=== PATIENT | female | born 2000 | race Caucasian/White ===

== ENCOUNTER → 2018-08-19 12:06 | Outpatient (CLI) | payer OTHER, SELFPAY ==
[2018-08-19 12:59] LABS: Basophils % 0.3 % (0.1-2.0); Eosinophils # 0.1 K/mm3 (0.0-0.4); Eosinophils % 0.8 % (0.1-12.0); Hematocrit 37.9 % (37.0-47.0); Hemoglobin 12.6 g/dL (12.2-16.2); Lymphocytes # 1.6 K/mm3 (0.7-4.5); Lymphocytes % 18.7 % (10-50); Mean Corpuscular HGB Conc 33.1 g/dL (31.8-35.4); Mean Corpuscular Hemoglobin 29.2 pg (27.0-31.2); Mean Corpuscular Volume 88.2 fl (81-99); Monocytes # 0.4 K/mm3 (0.1-1.0); Monocytes % 5.1 % (1.7-9.3); Neutrophils # 6.4 K/mm3 (1.8-7.8); Neutrophils % 75.1 % (37.0-80.0); Platelet Count 240 K/mm3 (142-424); Red Cell Distribution Width 13.1 % (11.5-17.5); White Blood Count 8.5 K/mm3 (4.5-13.0)
[2018-08-20 09:16] LABS: HIV Screen 4th Generation wRfx Non Reactive (Non Reactive)
[2018-08-22 08:20] LABS: Hepatitis B Surface Antigen Negative (Negative); Hepatitis C Antibody 0.2 s/co ratio (0.0-0.9); Rapid Plasma Reagin Ab Titer Non Reactive (NonRea<1:1); Rubella Antibodies, IgG 1.26 index (Immune >0.99)
[2018-08-24 08:41] LABS: Neisseria gonorrhoeae, NAA Negative (Negative)
== END ==
PROVIDERS: Visit Provider Nurse Practitioner Obstetrics & Gynecology
DX: O24.919 Unspecified diabetes mellitus in pregnancy, unspecified trimester (principal); Z34.90 Encounter for supervision of normal pregnancy, unspecified, unspecified trimester; Z79.4 Long term (current) use of insulin
CPT/HCPCS: 36415; 85025; 86592; 86703; 86762; 86850; 87340; 87380; 87491; 87591; G0432

== ENCOUNTER → 2018-08-30 13:08 | Outpatient (CLI) | payer OTHER, SELFPAY ==
--- NOTE | 2018-08-30 13:12 | US_ITS ---
US OB transvaginal: INDICATION: Occasional vaginal spotting ITS.REASON: US OB Dates ORDERING PHYSICIAN: Wyatt Quick MD PATIENT AGE: 17 years TECHNIQUE: ultrasound transabdominal scanning. COMPARISON: No previous relevant studies. FINDINGS: There is an intrauterine gestational sac. There is a viable gestation with the crown-rump length measuring 1.13 cm equaling 7 weeks and 2 days. The sac is visualized measuring 2.43 cm. The heart rate is 1 39 bpm. Both ovaries are imaged and appear normal. There is no cul-de-sac fluid. Impression: Viable early intrauterine gestation approximate age 7 weeks and 3 days with estimated due date 04/15/2019
== END ==
PROVIDERS: Visit Provider Nurse Practitioner Obstetrics & Gynecology
DX: O26.841 Uterine size-date discrepancy, first trimester (principal)
CPT/HCPCS: 76817

== ENCOUNTER → 2018-11-25 13:01 | Outpatient (CLI) | payer OTHER, SELFPAY ==
--- NOTE | 2018-11-25 13:06 | US_ITS ---
US OB /maternal detail: INDICATION: ITS.REASON: US OB Complete ORDERING PHYSICIAN: Wyatt Quick MD PATIENT AGE: 17 years TECHNIQUE: ultrasound transabdominal scanning. COMPARISON: No previous relevant studies. FINDINGS: Single viable intrauterine gestation. Breech position. Placenta: Posterior placenta grade 1. There is normal amount fluid. The cervix appears satisfactory. Closed and measuring 4.19 cm in length. Complete survey performed and was unremarkable on the submitted images as in PACS. No discrete anomalies identified on survey imaging by technologist. Active fetus. Three-vessel cord with satisfactory umbilical cord insertion. 4- chamber heart noted. Survey of brain & ventricles unremarkable. Face and neck survey unremarkable. Diaphragm and chest views unremarkable. Abdomen: Both kidneys noted and unremarkable. Stomach noted and satisfactory. Spine: Survey of the spine satisfactory with no anomalies identified nor imaged. Both arms and legs noted. Amniotic Fluid: Adequate. Maternal adnexa: No significant findings. Measurements: Average ultrasound age 19 weeks and 5 days.. Gestational Age 19 weeks and 6 days.. Estimated due date by ultrasound age 1104/16/2019.. Estimated weight 309 grams. BPD = 19 weeks 6 days OFD = 19 weeks 6 days HC = 19 weeks 0 days AC = 19 weeks 6 days FL = 19 weeks 6 days Growth Percentile= 37% Heart Rate = 142 bpm Cerebellum = 1.93 cm equals 19 weeks and 6 days. Humerus = 3.15 cm equals 19 weeks and 6 days. HC/AC is 1.11. CI is 80%. FL/BPD is 69%. FL/AC is 22%. IMPRESSION: Intrauterine fetus as described with reach presentation and heart rate of 1 42 bpm. Estimated gestational age by ultrasound is 19 weeks and 5 days.
== END ==
PROVIDERS: Visit Provider Nurse Practitioner Obstetrics & Gynecology
DX: Z36.0 Encounter for antenatal screening for chromosomal anomalies (principal)
CPT/HCPCS: 76811

== ENCOUNTER → 2019-02-07 12:28 | Outpatient (CLI) | payer OTHER, SELFPAY ==
[2019-02-07 13:04] LABS: Glucose,Fasting 82 mg/dL (60-105)
[2019-02-07 14:33] LABS: Glucose 1 Hour 143 mg/dL (74-106)
== END ==
PROVIDERS: Visit Provider Nurse Practitioner Obstetrics & Gynecology
DX: Z34.90 Encounter for supervision of normal pregnancy, unspecified, unspecified trimester (principal)
CPT/HCPCS: 36415; 82951

== ENCOUNTER → 2019-02-18 10:05 | Outpatient (CLI) | payer OTHER, SELFPAY ==
[2019-02-18 10:45] LABS: Glucose,Fasting 84 mg/dL (60-105)
[2019-02-18 12:07] LABS: Glucose 1 Hour 152 mg/dL (74-106)
[2019-02-18 13:34] LABS: Glucose 2 Hour 99 mg/dL (74-106)
[2019-02-18 14:35] LABS: Glucose 3 Hour 101 mg/dL (74-106)
== END ==
PROVIDERS: Visit Provider Nurse Practitioner Obstetrics & Gynecology
DX: Z34.90 Encounter for supervision of normal pregnancy, unspecified, unspecified trimester (principal)
CPT/HCPCS: 36415; 82951

== ENCOUNTER → 2019-03-20 17:17 | Outpatient (CLI) | payer OTHER, SELFPAY ==
[2019-03-20 17:19] LABS: Microscopic, Urine URINE MICROSCOPIC (MICROSCOPIC)
[2019-03-20 17:27] LABS: Appearance,Urine CLEAR (Clear); Bilirubin,Urine Negative (Negative); Blood, Urine TRACE-L (Negative); Color,Urine YELLOW (Yellow); Glucose,Urine (UA) Negative (Negative); Ketones,Urine Negative (Negative); Leukocyte Esterase,Urine 3+ (Negative); Nitrate,Urine Negative (Negative); PH,Urine 6.5 (5.0-8.5); Protein,Urine Negative (Negative); Specific Gravity, Urine 1.015 (1.005-1.030); Urobilinogen,Urine 0.2 EU/dl (0.2)
[2019-03-20 18:00] LABS: Bacteria,Urine 1+ /lpf; WBC,Urine 20-50 #/hpf (0-3)
== END ==
PROVIDERS: Visit Provider Nurse Practitioner Obstetrics & Gynecology
DX: Z34.90 Encounter for supervision of normal pregnancy, unspecified, unspecified trimester (principal); Z3A.36 36 weeks gestation of pregnancy
CPT/HCPCS: 81001; 86403; 87086

== ENCOUNTER 2019-04-11 15:29 | Inpatient (IN) ==
[2019-04-11 16:08] LABS: Microscopic, Urine URINE MICROSCOPIC (MICROSCOPIC)
[2019-04-11 16:09] LABS: Appearance,Urine CLEAR (Clear); Bilirubin,Urine Negative (Negative); Blood, Urine 3+ (Negative); Color,Urine YELLOW (Yellow); Glucose,Urine (UA) Negative (Negative); Ketones,Urine Negative (Negative); Leukocyte Esterase,Urine 3+ (Negative); PH,Urine 7.5 (5.0-8.5); Protein,Urine Negative (Negative); Specific Gravity, Urine 1.015 (1.005-1.030); Urobilinogen,Urine 0.2 EU/dl (0.2)
[2019-04-11 16:21] LABS: Amphetamine/Metha Screen,Urine Negative ng/mL (<1000); Barbiturates Screen,Urine Negative ng/mL (<200); Benzodiazepines Screen,Urine Negative ng/mL (<200); Cannabinoid Screen,Urine Negative ng/mL (<50); Cocaine Screen,Urine Negative ng/mL (<300); Methadone Screen,Urine Negative ng/mL (<300); Opiate Screen,Urine Negative ng/mL (<300); Phencyclidine Screen,Urine Negative ng/mL (<25)
[2019-04-11 16:30] LABS: Bacteria,Urine 1+ /lpf; WBC,Urine 20-50 #/hpf (0-3)
--- NOTE | 2019-04-11 16:31 | History & Physical Report ---
OB - H&P: HPI Antepartum - History of Present Illness Chief complaint: Contractions and vaginal bleeding History of present illness: She is a 18-year-old 1 para 0 at 39+ weeks gestational age. She was seen today in the office and she was found to be 4 cm dilated. Since that time she is been having irregular contractions and some spotting. Her cervix has not really changed - History of Present Criteria for establishing EDC:: LMP confirmed by 1st trimester US care: good care Ultrasounds: normal 1st trimester US, normal mid trimester US Obstetrical complications: none Medical complications: none [facility] History I have reviewed the patient's past medical history: Yes Medical History: Denies:: Diabetes Mellitus Type 1, Diabetes Mellitus Type 2 *Have you ever received a pneumonia vaccine?: No *Have you received a flu vaccine this season?: No Other Surgeries: Yes: No Previous Surgery Amputation: No Fractures: No - *Social History Smoking Status: Former smoker Tobacco Type: cigarettes Alcohol Intake: never Substance Use Type: denies use *Occupational Status:: unemployed *Travel in the last 8 weeks: None Family Hx:: Diabetes, Hypertension, Stroke Review of Systems - Review of Systems Review of systems:: pertinent systems reviewed and negative unless documented below Meds Home Medications Medication Instructions Recorded Confirmed Type Vit Calc,Iron,Folic [Kpn] 1 tab PO DAILY 10/19/18 04/11/19 History ferrous sulfate 325 mg (65 mg 325 mg PO DAILY #30 tab 11/15/18 04/11/19 Rx iron) tablet terconazole 0.8 % vaginal cream 1 appful VAGINAL QHS 3 Days #20 g 12/19/18 04/11/19 Rx nystatin 100,000 unit/mL oral 1 ml BUCCAL QID #60 ml 03/27/19 04/11/19 Rx suspension Allergies Allergy/AdvReac Type Severity Reaction Status Date / Time Penicillins [PENICILLINS] Allergy Mild Verified 04/11/19 11:08 Sulfa (Sulfonamide Allergy Mild Verified 04/11/19 11:08 Antibiotics) [SULFA (SULFONAMIDE ANTIBIOTICS)] OB - H&P: Exam - Constitutional no acute distress - Routine HEENT Exam Head: Present: normocephalic Eye: Present: EOMI, PERRL ENT: Present: mucous membranes moist - Routine Neck Exam Present: supple, full ROM - Routine Respiratory Exam Absent: accessory muscle use (good air entry bilaterally), respiratory distress, wheezes, crackles - Routine Cardiovascular Exam Present: RRR. Absent: murmur - Routine Abdominal Exam Present: soft, normoactive bowel sounds. Absent: tenderness, distended, guarding - Routine Rectal Exam Patient deferred: visual exam, digital exam - Routine Exam Patient deferred: external exam, groin exam, perineal exam - Routine Extremities Exam Present: full ROM. Absent: cyanosis, edema - Routine Skin Exam Present: intact. Absent: cyanosis - Routine Neurological Exam Present: alert, oriented X3 - Routine Psychiatric Exam Present: normal affect OB - Results - Labs Labs: Urine 04/11/19 Range/Units 15:47 Urine Color Yellow (Yellow) Urine Appearance Clear (Clear) Urine pH 7.5 (5.0-8.5) Ur Specific [place] 1.015 (1.005-1.030) Urine Protein Negative (Negative) Urine Glucose (UA) Negative (Negative) OB - A/P Antepartum (1) Normal delivery Current visit: Yes Status: Acute - Additional Plan Plan: expectant management Additional Information:: She is having regular contractions and she is 39 weeks and 5 days. We will plan to augment her labor. Her cervix is 4 to 5 cm 75% with irregular contractions. The nonstress test is reactive.
[2019-04-11 17:00] LABS: Basophils % 0.1 % (0.1-2.0); Eosinophils # 0.2 K/mm3 (0.0-0.4); Eosinophils % 1.2 % (0.1-12.0); Lymphocytes % 16.2 % (10-50); Mean Corpuscular HGB Conc 33.4 g/dL (31.8-35.4); Mean Corpuscular Volume 92.5 fl (81-99); Mean Platelet Volume 9.1 fl (7.4-10.4); Monocytes # 0.6 K/mm3 (0.1-1.0); Monocytes % 4.5 % (1.7-9.3); Neutrophils # 9.7 K/mm3 (1.8-7.8); Platelet Count 223 K/mm3 (142-424); Red Cell Distribution Width 13.5 % (11.5-17.5); White Blood Count 12.5 K/mm3 (4.5-13.0)
--- NOTE | 2019-04-12 09:29 | Progress Note ---
Labor Note - Subjective: Date: 04/12/19 Time: 09:28 regular contraction - Objective: NST:: Reactive Contractions:: every 2-3 minutes Cervical Dilation:: 4-5 Effacement:: 90% Station: -1 Membranes: artificially ruptured Comment:: I ruptured her membranes and there was clear fluid - Fetus: Monitoring?: Yes monitoring type:: External - Assessment: Labor progressing?: Yes Cephalopelvic disproportion?: No Patient Problems: All Active Problems Trichomonas infection (Acute) Normal delivery (Acute) (Acute) Conjunctivitis (Acute) - Plan: Anesthesia for epidural?: No Continue to labor down?: Yes Plan for ?: No Continue to monitor?: Yes Start pushing?: No
--- NOTE | 2019-04-12 10:42 | Progress Note ---
[facility] Anesthesia Checklist - Structural Data Admitted From: Inpatient Planned Operative Procedure/s: labor epidural Consent for Planned Operative Procedure(s) Verified: Yes - Airway Assessment C-Spine Mobility Assessed: Yes TMJ Mobility Assessed: Yes Dentition: Good Dentition - Neurological Assessment Level of Consciousness: Awake, Alert, Appropriate - Anesthesia Plan Anesthesia Risk discussed: Yes Anesthesia Plan: Verified ASA Class: II Anesthesia Type: Epidural [facility] History I have reviewed the patient's past medical history: Yes Medical History: Denies:: Diabetes Mellitus Type 1, Diabetes Mellitus Type 2 *Have you ever received a pneumonia vaccine?: No *Have you received a flu vaccine this season?: No Anesthesia experience/problems:: none Other Surgeries: Yes: No Previous Surgery. No: Amputation: No Fractures: No - *Social History Smoking Status: Former smoker Tobacco Type: cigarettes Alcohol Intake: never Substance Use Type: denies use *Occupational Status:: unemployed *Travel in the last 8 weeks: None Family Hx:: Diabetes, Hypertension, Stroke Para: 0
--- NOTE | 2019-04-12 12:30 | Progress Note ---
Labor Note - Subjective: Date: 04/12/19 Time: 12:28 regular contraction - Objective: NST:: Reactive Contractions:: every 2-3 minutes Cervical Dilation:: 6 Effacement:: 100% Station: 0 Membranes: artificially ruptured - Fetus: Monitoring?: Yes monitoring type:: Internal - Assessment: Labor progressing?: Yes Cephalopelvic disproportion?: No Patient Problems: All Active Problems Trichomonas infection (Acute) Normal delivery (Acute) (Acute) Conjunctivitis (Acute) - Plan: Anesthesia for epidural?: Yes Continue to labor down?: Yes Plan for ?: No Continue to monitor?: Yes Start pushing?: No Comment:: She has been having some early decelerations. We have decided to start an amnioinfusion. She is now 6 cm and station 0. The cervix is thinned right out. We will see how she does over the next hour with respect to her heart rate strip. I suspect she may have a nuchal cord. She is on oxygen.
--- NOTE | 2019-04-12 13:36 | Progress Note ---
Labor Note - Subjective: Date: 04/12/19 Time: 13:34 regular contraction - Objective: NST:: Reactive Contractions:: every 2-3 minutes Cervical Dilation:: 9-10 Effacement:: 100% Station: +1 Membranes: artificially ruptured - Fetus: Monitoring?: Yes monitoring type:: Internal - Assessment: Labor progressing?: Yes Cephalopelvic disproportion?: No Patient Problems: All Active Problems Trichomonas infection (Acute) Normal delivery (Acute) (Acute) Conjunctivitis (Acute) - Plan: Anesthesia for epidural?: Yes Continue to labor down?: Yes Plan for ?: No Continue to monitor?: Yes Start pushing?: Yes Continue pushing?: Yes Comment:: She continues to have early decelerations with each contraction. However there is good recovery after each contraction. She is fully dilated station +1. We will continue to have her push. If we still have issues with recovery of the heart then we will go ahead and deliver her with forceps.
--- NOTE | 2019-04-12 14:00 | Procedure Note ---
- Delivery Note Delivery Date:: 04/12/19 Delivery Time:: 13:45 Anesthesia Type: Epidural Was labor medically induced?: No Induction method: none Gestational age (weeks): 39 delivered prior to 39 weeks?: No Justification for early elective delivery:: Active Labor Gender: Female at 1 minute: 7 at 5 minutes: 9 LAC or MLE?: LAC Delivery Procedure:: She is a 18-year-old 1 para 0 at 39 and 4 weeks gestational age. She came in in the evening of April 11 in early labor. She was having irregular contractions. She was found to be 4 to 5 cm dilated. She was augmented with oxytocin and had her membranes ruptured. Under labor epidural she progressed to full dilation. She was having early decelerations and occasional prolonged decelerations. As a result of that in the station +4 direct OA position I elected to place forceps. Her bladder was empty. I used Murillo forceps with pads and using 1 long gentle pull I was able to easily deliver the head. There were no nuchal cords. On deliver the head the anterior shoulder then delivered followed by the rest the 's body atraumatically. The baby was vigorous and cried spontaneously. As result of this we allowed the cord to continue to pulsate for approximately 1 minute. The cord was then doubly clamped and the infant was handed off to Dr. Sanders who assigned Apgars of 7 at 1 minute and 9 at 5 minutes. We then obtained cord blood as well as cord pH. The patient received IV oxytocin. Using gentle traction on the cord and countertraction the fundus I was able to easily deliver the placenta intact. It had a normal three-vessel cord. She had a small vaginal laceration posteriorly that was repaired with interrupted 3-0 Vicryl Rapide suture in a [id number] fashion. She has a positive blood, she is rubella immune and was group B streptococcus negative. She plans to bottlefeed. Her drier operator is Dr. Huynh. Her estimate of blood loss was approximately 400 cc. Laceration:: vaginal Placental Delivery Description: Spontaneous
--- OUTSIDE RECORDS SUMMARY | 2019-04-12 15:08 | External Medical Summary | Continuity of Care Document ---
:2000 Author Organization [facility] Address [address] [place] [address] Phone Care Team Providers Name Role Phone Wyatt Quick Attending Provider Provider, Referral Primary Care Provider Unavailable Wyatt Quick Primary Care Provider Allergies, Adverse Reactions, Alerts Allergen Type Severity Reaction Last Verified Status Updated Penicillins Allergy Mild Yes Active Sulfa Allergy Mild Yes Active (Sulfonamide Antibiotics) Medications Medication Status Dose Units Route Sig Qty Days Start End Instruct ions Date Date Vit Active 1 TAB Oral Daily September Calc,Iron,Fo 2018 12:31am Problems Active Problems Medical Problem Onset Date Status Trichomonas infection Active Normal delivery Active Conjunctivitis Active Active Procedures Procedure Date Performed Status Urine Culture April 11, 2019 active Group B Streptococcus Screen March 20, 2019 completed (SUPRIYA) Urine Culture March 20, 2019 completed Relevant Diagnostic Tests and/or Laboratory Data Laboratory Results Test Date/Time Result Interpretation Reference Result Perfo rming Range Comment Site Urine Color December Yellow 2018 2:24pm Urine Color January Dark Yellow 2018 1:36pm Urine Color January Yellow 2018 2:16pm Urine Color February Yellow 2018 1:46pm Urine Color March Conchis 2018 10:55am Urine Appearance December Clear 2018 2:24pm Urine Appearance January Clear 2018 1:36pm Urine Appearance January Clear 2018 2:16pm Urine Appearance October Slightly 2018 Cloudy 1:46pm Urine Appearance November Clear 2018 10:55am Urine Glucose December Negative (UA) 2018 2:24pm Urine Glucose January Negative (UA) 2018 1:36pm Urine Glucose January Negative (UA) 2018 2:16pm Urine Glucose February Negative (UA) 2018 1:46pm Urine Glucose March Negative (UA) 2018 10:55am Urine Bilirubin December negative 2018 2:24pm Urine Bilirubin January negative 2018 1:36pm Urine Bilirubin January negative 2018 2:16pm Urine Bilirubin February negative 2018 1:46pm Urine Bilirubin March negative 2018 10:55am Urine Ketones December Negative 2018 mg/dL 2:24pm Urine Ketones January Trace 2018 mg/dL 1:36pm Urine Ketones January Negative 2018 mg/dL 2:16pm Urine Ketones February Negative 2018 mg/dL 1:46pm Urine Ketones March Trace 2018 mg/dL 10:55am Urine Protein December Negative 2018 2:24pm Urine Protein February 27+ 2018 1:36pm Urine Specific Lisa 1.020 [place] 2018 2:16pm Urine Protein March 292018 1:46pm Urine Protein March Negative 2018 10:55am Urine pH December 6.0 2018 2:24pm Urine pH January 6.5 2018 1:36pm Urine Blood Lisa hemolyzed 2018 trace 2:16pm Urine pH February 6.5 2018 1:46pm Urine pH March 7.0 2018 10:55am Urine Blood Crown negative 2018 2:24pm Urine Blood January negative 2018 1:36pm Urine pH Lisa 6.0 2018 2:16pm Urine Blood February negative 2018 1:46pm Urine Blood November negative 2018 10:55am Urine Specific Crown 1.025 [place] 2018 2:24pm Urine Specific Lisa 1.020 [place] 2018 1:36pm Urine Protein January Negative 2018 2:16pm Urine Specific October 1.025 [place] 2018 1:46pm Urine Specific November 1.015 [place] 2018 10:55am Urine Crown 0.2 Urobilinogen 2018 Dipstick 2:24pm Urine Lisa 0.2 Urobilinogen 2018 Dipstick 1:36pm Urine Lisa 0.2 Urobilinogen 2018 Dipstick 2:16pm Urine October 0.2 Urobilinogen 2018 Dipstick 1:46pm Urine November 0.2 Urobilinogen 2018 Dipstick 10:55am Urine Nitrate December Negative 2018 2:24pm Urine Nitrate Lisa Negative 2018 1:36pm Urine Nitrate Lisa Negative 2018 2:16pm Urine Nitrate October Negative 2018 1:46pm Urine Nitrate November Negative 2018 10:55am Urine Leukocyte December Small Esterase 2018 2:24pm Urine Leukocyte January Large Esterase 2018 1:36pm Urine Leukocyte January Large Esterase 2018 2:16pm Urine Leukocyte February Large Esterase 2018 1:46pm Urine Leukocyte March Moderate Esterase 2018 10:55am White Blood Count March 12.5 K/mm3 4.5-13.[address] 36 E 2018 [place] [address] 4:47pm Red Blood Count March 3.90 M/mm3 4.20-5.40 [facility], [address] [place] [address] 36 E 2018 [place] [address] 4:47pm Hemoglobin March 12.0 g/dL 12.2-16.[address] 36 E 2018 En [place] [address]45 4:47pm Hematocrit March 36.0 % 37.0-47.[address] 36 E 2018 [place] [address] 4:47pm Mean Corpuscular November 92.5 fl 81-[address] 36 E Volume 2018 En [place] [address]307 4:47pm Mean Corpuscular November 30.9 pg 27.0-31.[address] 36 E Hemoglobin 2018 [place] [address] 4:47pm Mean Corpuscular November 33.4 g/dL 31.8-35.[address] 36 E Hemoglobin 2018 [place] [address] Concent 4:47pm Red Cell March 13.5 % 11.5-17.5 [facility], [address] [place] [address] 36 E Distribution 2018 [place] [address] Width 4:47pm Platelet Count March 223 K/mm3 142-424 [facility], [address] [place] [address] 36 E 2018 [place] [address] 4:47pm Mean Platelet March 9.1 fl 7.4-10.4 [facility], [address] [place] [address] 36 E Volume 2018 [place] [address] 4:47pm Neutrophils (%) March 78.0 % 37.0-80.0 [facility], [address] [place] [address] 36 E (Auto) 2018 [place] [address]645 4:47pm Lymphocytes (%) March 16.2 % 10-50 [facility], [address] [place] [address] 36 E (Auto) 2018 [place] [address] 4:47pm Monocytes (%) March 4.5 % 1.7-9.3 [facility], [address] [place] [address] 36 E (Auto) 2018 [place] 39574 4:47pm Eosinophils (%) March 1.2 % 0.1-12.0 [facility], [address] [place] [address] 36 E (Auto) 2018 En [place] 17036 4:47pm Basophils (%) March 0.1 % 0.1-2.0 [facility], [address] [place] [address] 36 E (Auto) 2018 [place] [address]21 4:47pm Neutrophils # March 9.7 K/mm3 1.8-7.8 [facility], [address] [place] [address] 36 E (Auto) 2018 [place] [address] 4:47pm Lymphocytes # March 2.0 K/mm3 0.7-4.5 [facility], [address] [place] [address] 36 E (Auto) 2018 [place] [address] 4:47pm Monocytes # March 0.6 K/mm3 0.1-1.0 [facility], [address] [place] [address] 36 E (Auto) 2018 [place] [address] 4:47pm Eosinophils # March 0.2 K/mm3 0.0-0.4 [facility], [address] [place] [address] 36 E (Auto) 2018 [place] [address] 4:47pm Basophils # November 0.0 K/mm3 0-0.2 [facility], [address] [place] [address] 36 E (Auto) 2018 [place] [address] 4:47pm Urine Color October Yellow Yellow [facility], [address] [place] [address] 36 E 2018 [place] [address] 11:28am Urine Color November Yellow Yellow [facility], [address] [place] [address] 36 E 2018 [place] [address] 3:47pm Urine Appearance October Clear Clear [facility], [address] [place] [address] 36 E 2018 [place] [address] 11:28am Urine Appearance November Clear Clear [facility], [address] [place] [address] 36 E 2018 [place] [address]385 3:47pm Urine pH October 6.5 5.0-8.5 [facility], [address] [place] [address] 36 E 2018 [place] [address] 11:28am Urine pH November 7.5 5.0-8.5 [facility], [address] [place] [address] 36 E 2018 [place] [address]43 3:47pm Urine Specific October 1.015 1.005-1.03 [facility], [address] [place] [address] 36 E [place] 2018 0 En [place] [address] 11:28am Urine Specific November 1.015 1.005-1.03 [facility], [address] [place] [address] 36 E [place] 2018 0 En [place] [address] 3:47pm Urine Protein October Negative Negative [facility], [address] [place] [address] 36 E 2018 [place] [address] 11:28am Urine Protein November Negative Negative [facility], [address] [place] [address] 36 E 2018 [place] [address] 3:47pm Urine Glucose October Negative Negative [facility], [address] [place] [address] 36 E (UA) 2018 En [place] 286[address] 11:28am Urine Glucose November Negative Negative [facility], [address] [place] [address] 36 E (UA) 2018 [place] [address]2869 3:47pm Urine Ketones October Negative Negative [facility], [address] [place] [address] 36 E 2018 En [place] [address] 11:28am Urine Ketones November Negative Negative [facility], [address] [place] [address] 36 E 2018 [place] [address] 3:47pm Urine Blood October Trace-l Negative [facility], [address] [place] [address] 36 E 2018 [place] [address] 11:28am Urine Blood November 3+ Negative [facility], [address] [place] [address] 36 E 2018 [place] [address]257 3:47pm Urine Nitrate October Negative Negative [facility], [address] [place] [address] 36 E 2018 [place] [address] 11:28am Urine Nitrate November Negative Negative [facility], [address] [place] [address] 36 E 2018 [place] [address]94 3:47pm Urine Bilirubin October Negative Negative [facility], [address] [place] [address] 36 E 2018 [place] 16366 11:28am Urine Bilirubin November Negative Negative [facility], [address] [place] [address] 36 E 2018 [place] 39687 3:47pm Urine October 0.2 EU/dl [facility], [address] [place] [address] 36 E Urobilinogen 2018 [place] [address] 11:28am Urine November 0.2 EU/dl [facility], [address] [place] [address] 36 E Urobilinogen 2018 [place] 16312 3:47pm Urine Leukocyte February 3+ Negative [facility], [address] [place] [address] 36 E Esterase 2018 [place] 80194 11:28am Urine Leukocyte November 3+ Negative [facility], [address] [place] [address] 36 E Esterase 2018 [place] 05844 3:47pm Urine RBC February 5-10 #/hpf [facility], [address] [place] [address] 36 E 2018 [place] 12774 11:28am Urine RBC March 10-20 #/hpf [facility], [address] [place] [address] 36 E 2018 En [place] [address]284 3:47pm Urine WBC February 20-50 #/hpf [facility], [address] [place] [address] 36 E 2018 [place] [address]70 11:28am Urine WBC March 20-50 #/hpf [facility], [address] [place] [address] 36 E 2018 En [place] 42896 3:47pm Urine Squamous March 04- #/hpf [facility], [address] [place] [address] 36 E Epithelial Cells 2018 Cy luanne [place] [address]697 11:28am Urine Squamous April 09- #/hpf [facility], [address] [place] [address] 36 E Epithelial Cells 2018 Cy luanne [place] 88189 3:47pm Urine Bacteria February 28+ /lpf NONE [facility], [address] [place] [address] 36 E 2018 [place] 70298 11:28am Urine Bacteria March 31+ /lpf NONE [facility], [address] [place] [address] E 2018 [place] [address] 3:47pm Fasting Glucose January 82 mg/dL -105 [facility], [address] [place] [address] E 2018 En [place] 12658 12:29pm Fasting Glucose January 84 mg/dL 60-105 [facility], [address] [place] [address] 36 E 2018 En [place] 37465 10:06am Glucose 1 Hour January 143 mg/dL 74-106 [facility], [address] [place] [address] 36 E 2018 En [place] 74145 12:29pm Glucose 1 Hour January 152 mg/dL 74-106 [facility], [address] [place] [address] 36 E 2018 En [place] 62271 10:06am Glucose 2 Hour January 99 mg/dL 74-106 [facility], [address] [place] [address] 36 E 2018 En [place] 32822 10:06am Glucose 3 Hour January 101 mg/dL 74-106 [facility], [address] [place] [address] 36 E 2018 En [place] 85367 10:06am Urine Fasting Lisa Negative [facility], [address] [place] [address] E Glucose 2018 mg/dL [place] 56974 12:29pm Urine Fasting January Negative [facility], [address] [place] [address] 36 E Glucose 2018 mg/dL [place] 90550 10:06am Urine Glucose 29 January Negative [facility], [address] [place] [address] 36 E Hour 2018 mg/dL [place] 03123 12:29pm Urine Glucose 29 January Negative [facility], [address] [place] [address] 36 E Hour 2018 mg/[place] [address] 10:06am Urine Glucose 2 January Negative [facility], [address] [place] [address] E Hour 2018 mg/[place] [address] 10:06am Urine Glucose 3 January Negative [facility], [address] [place] [address] E Hour 2018 mg/[place] [address] 10:06am Urine Opiates November Negative [facility], [address] [place] [address] E Screen 2018 ng/[place] [address] 3:47pm Urine Barbituates November Negative [facility], [address] [place] [address] E Screen 2018 ng/[place] [address] 3:47pm Urine November Negative [facility], [address] [place] [address] E Phencyclidine 2018 ng/[place] [address] Screen 3:47pm Urine November Negative [facility], [address] [place] [address] E Amphetamines 2018 ng/[place] [address] Screen 3:47pm Urine Methadone November Negative [facility], [address] [place] [address] E Screen 2018 ng/[place] [address] 3:47pm Urine November Negative [facility], [address] [place] [address] E Benzodiazepines 2018 ng/[place] [address] Screen 3:47pm Urine Cocaine November Negative [facility], [address] [place] [address] E Screen 2018 ng/[place] [address] 3:47pm Urine Marijuana March Negative [facility], [address] [place] [address] E (THC) Screen 2018 ng/[place] [address] 3:47pm Cord Arterial March 7.34 7.35-7.45 [facility], [address] [place] [address] E Blood pH 132018 [place] [address] 1:50pm Microbiology Results Procedure Source Result Collection Result Result Performin g Date/Time Date/Time Comment Site Urine Culture Urine,Chaya NO GROWTH March 20February H [facility], [address] [place] [address] E n Catch AFTER 48 2018 11:28am 2018 [place] [address] HOURS 5:20pm Group B Vaginal Negative March 20February [facility], [address] [place] [address] E Streptococcus for Group B 2018 10:56am 2018 [place] [address] Screen (SUPRIYA) Streptococc 9:19am us. Advance Directives Advance Directive Response Recorded Date/Time Does the patient have an No April 11, 2019 11:26am advanced directive on file? Living Will No April 11, 2019 11:26am Does the patient have an No April 03 019 11:48am advanced directive on file? Living Will No April 03, 2019 1 1:48am Does the patient have an No March 27 019 9:40am advanced directive on file? Living Will No March 27, 2019 9 :40am Does the patient have an No January 16 2:32pm advanced directive on file? 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 Reason for Visit Normal delivery Encounters Encounter Location(s) Arrival/Admit Date Discharge/Depart Date Provider(s) Departed [facility] Physician January 16, 2019 January 16, 2019 Da Quick [facility] 1:57pm 2:31pm anna Office [facility] Abdelrahman Visit Registered [facility] Physician February 07, Wyatt kenny , Clinical Group-Laboratory 2018 12:28pm Departed [facility] Physician February 08, February 08, 2019 [facility] 2018 1:27pm 2:10pm anna Office Health Abdelrahman Visit Registered [facility] Physician February 18, Wyatt kenny , Clinical Group-Laboratory 2018 10:05am Departed [facility] Physician February 22, February 22, 2019 [facility] 2018 1:41pm 2:48pm anna Office Health Abdelrahman Visit Departed [facility] Physician March 07, 2019 March 07, 2019 aD Quick Physician/[facility] 1:36pm 2:04pm anna Office Health Abdelrahman Visit Departed [facility] Physician March 20, 2019 March 20, 2019 [place] Physician[facility] 10:46am 11:19am anna Office Health Abdelrahman Visit Registered [facility] Physician March 20, 2019 Wyatt logan , Clinical Group-Lab Drop 5:17pm MD Off to [facility] Departed [facility] Physician March 27, 2019 March 27, 2019 [place] [facility] 8:51am 9:39am anna Office Health Abdelrahman Visit Departed [facility] Physician April 03, 2019 April 03, 2019 [place] Physician[facility] 10:53am 11:36am anna Office Health Abdelrahman Visit Departed [facility] Physician April 11, April 11, 2019 Physician Janay/[facility] 2018 10:41am 11:26am anna Office [facility] Abdelrahman Visit Admitted [facility] Physician April 11, Wyatt Quick Inpatient Group-Obstetric 2018 4:50pm MD Registered [facility] Physician April 12, Wyatt Quick Inpatient Group- 2018 2:56pm Recent Diagnosis Onset Date Normal delivery Assessments Diagnosis Onset Date Resolution Status Normal delivery acute Functional Status Observation Response Date Recorded Functional status ambulatory April 11, 2019 11:26am Oral Care Ability Independent April 11, 2019 11:26am Bathing Ability Independent April 11, 2019 11:26am Functional status ambulatory April 03, 2019 1 1:48am Functional status ambulatory March 27, 2019 9 :40am Functional status ambulatory March 07, 2019 2: 08pm Functional status ambulatory February 22, 2019 2:53pm Functional status ambulatory January 16, 2019 2: 32pm Functional status ambulatory March 20, 2019 1 1:21am Functional status ambulatory February 08, 2019 2:09pm Goals Ambulatory Goals Pt. verbalized understanding of disease process/healthy behavior/pt. to follow plan of care/education provided Immunizations Immunization Event Not Given Dose [employer] Lot Vacc ine Date Reason Number Number Informatio n Statement (VIS) Deta il Human July Papillomavirus , Vaccine, 2009 quadrivalent Rabies, November intramuscular , injection 2002 Tetanus, July Diphtheria, , Pertussis (Tdap) 2009 Varicella Virus July Vaccine 2009 Mental Status Observation Response Date Recorded Able to Read Yes April 11, 2019 4:00pm Able to Write Yes April 11, 2019 4:00pm Medical Equipment No Medical Equipment Information available Insurance Providers Guarantor Sanjuana Dhillon Address [address] [address] Contact Info. Home Phone: Payer Policy Id Coverage Id Subscriber's Subscriber Effective Expi ration Name Id Date Date [employer] [id number] Sanjuana Dhillon [id number] [employer] [facility] [place] Self Pay Self N/A Plan of Treatment She is having some discomfort. She is not really having regular contractions. She is 4 cm. I suspect she will deliver this week. She continues to do well. We will see her back again in a week. She is doing well but she does have what appears to be thrush in her mouth. We will go ahead and start nystatin swish and swallow. She is doing well. The baby is active. We will see her back again in 2 weeks time. She continues to do well. We will see her back in 2 weeks time. She is doing well. The baby is active. We will see her back in 2 weeks. She is doing well. We did group B trip today. We will see her back again in a week. She is doing very well. We will see her back in 2 weeks. She will do a sugar test. Future Tests Future scheduled test information is unavailable Pending Tests Pending diagnostic test information is unavailable Future Visits Future appointment information is unavailable Referrals to Other Providers Reason for Referral Start Provider Provider Contact Provider Address Referral Date Information Admission to [facility] April [address] Future Procedures Future procedure information is unavailable Future Medications Future medication information is unavailable Patient Instructions Diet How to Avoid a Cold or Flu Diet Diet Diet Diet How to Breastfeed Your Baby Diet Social History Assigned Sex Female Vital Signs Vital Reading Result Reference Range Collection Date/ Time Height 162.56 cm January 16 9 2:04pm Height 162.56 cm February 08, 2019 1:47pm Weight 81.64 kg February 08, 2019 1:47pm BP Systolic 110 mm[Hg] 110-140 February 08, 2019 1:47pm BP Diastolic 76 mm[Hg] 60-90 February 08, 2019 1:47pm BMI (Body Mass Index) 30.9 kg/m2 February 08, 2019 1:47pm Height 162.56 cm February 22, 2019 2:22pm Weight 84.14 kg February 22, 2019 2:22pm Heart Rate 84 /min 60-90 February 22, 2019 2:22pm BP Systolic 112 mm[Hg] 110-140 February 22, 2019 2:22pm BP Diastolic 66 mm[Hg] 60-90 February 22, 2019 2:22pm BMI (Body Mass Index) 31.8 kg/m2 February 22, 2019 2:22pm Height 162.56 cm March 07 1:48pm Weight 85.38 kg March 07 1:48pm BP Systolic 112 mm[Hg] 110-140 March 07 9 1:48pm BP Diastolic 72 mm[Hg] 60-90 March 07 9 1:48pm BMI (Body Mass Index) 32.3 kg/m2 February 1:48pm Height 162.56 cm March 20, 10:57am Weight 87.60 kg March 20 10:57am BP Systolic 124 mm[Hg] 110-140 March 20, 10:57am BP Diastolic 72 mm[Hg] 60-90 March 20 10:57am BMI (Body Mass Index) 33.1 kg/m2 March 202018 10:57am Height 162.56 cm March 27, 9:17am Height 162.56 cm April 03, 10:55am Weight 88.45 kg April 03, 10:55am BP Systolic 118 mm[Hg] 110-140 April 03 10:55am BP Diastolic 74 mm[Hg] 60-90 April 03, 10:55am BMI (Body Mass Index) 33.5 kg/m2 April 032018 10:55am Height 162.56 cm April 11, 2 019 11:02am Weight 88.90 kg April 11, 2 019 11:02am BP Systolic 120 mm[Hg] 110-140 April 11, 2 019 11:02am BP Diastolic 80 mm[Hg] 60-90 April 11, 2 019 11:02am BMI (Body Mass Index) 33.6 kg/m2 March 312018 11:02am Height 163 cm April 11, 2 019 4:00pm Weight 88.90 kg April 11, 2 019 4:00pm Body Temperature 97.9 [degF] 97.6-99.6 April 12, 2019 8:12am Heart Rate 69 /min -April 12, 2 019 8:12am Respiratory rate 20 /min -April 12, 2019 8:12am Oxygen saturation by 98 % 95-100 April 122018 Pulse oximetry 8:12am BP Systolic 110 mm[Hg] 110-140 April 12, 2 019 8:12am BP Diastolic 56 mm[Hg] 60-90 April 12 019 8:12am BMI (Body Mass Index) 33.4 kg/m2 March 312018 4:00pm
[2019-04-13 06:41] LABS: Hematocrit 29.2 % (37.0-47.0); Hemoglobin 9.7 g/dL (12.2-16.2)
--- NOTE | 2019-04-13 11:39 | Progress Note ---
Internal Medicine - PN: Subj *Date: 04/13/19 *Time: 11:38 Interval history: She is doing well today. She is eating and drinking and ambulating. Her lochia is normal. Exam Vital signs and Labs for Last 24 Hours: Temp Pulse Resp BP Pulse Ox 98.4 F 65 17 127/71 98 04/13/19 04:00 04/13/19 04:00 04/13/19 04:00 04/13/19 04:00 04/13/19 04:00 Laboratory Results - last 24 hr 04/12/19 13:50: Cord ABG pH 7.34 L 04/13/19 06:10: Hgb 9.7 L, Hct 29.2 L I & O for Last 24 hours: Intake & Output 04/10/19 04/11/19 04/12/19 04/13/19 11:59 11:59 11:59 11:59 Output Total 700 / 700 Balance -700 / -700 Weight 195 lb 15.996 oz Microbiology Reports for the Last 24 Hours: Microbiology 04/11/19 15:47 Urine,Clean Catch Urine Culture - Preliminary NO GROWTH AFTER 24 HOURS - Constitutional no acute distress Assessment and Plan (1) Normal delivery Current visit: Yes Status: Acute Category: Medical Code(s): O80 - Encounter for full-term uncomplicated delivery - Assessment and plan all Dx Assessment and Plan for all problems:: She continues to do well today. Will follow up with her again tomorrow and Dr. Tripathi will send her home. She will follow-up with me in a couple of weeks.
--- NOTE | 2019-04-13 11:42 | Discharge Summary ---
General - General Admission date:: 04/11/19 Discharge date: 04/14/19 HPI HPI: She is a 18-year-old 1 para 0 at 39+ weeks gestational age. She was having contractions and was admitted on the evening of the . Hospital Course Hospital Course: On the morning of 12 April 2019 she was augmented with oxytocin and under labor epidural progressed to full dilation. She delivered spontaneously a madalyn eborn female child at 1:45 PM in the afternoon of April 12. The baby weighed 7 pounds 1 ounces and had Apgars of 7 at 1 minute and 9 at 5 minutes. She was delivered by forceps and the baby was in the direct OA position with an empty bladder and head at the perineum. She has a small first-degree vaginal laceration. She has done well and has remained afebrile throughout her hospita lization. She is eating and drinking and ambulating. She has a positive blood, she is rubella immune and was group B strep coccus negative. Her [facility] consultant is Dr. Huynh. Rhogam Administration: Not Indicated Objective Vital signs: Temp Pulse Resp BP Pulse Ox 98.4 F 65 17 127/71 98 04/13/19 04:00 04/13/19 04:00 04/13/19 04:00 04/13/19 04:00 04/13/19 04:00 no acute distress Results Labs on day of discharge: Labs from last 24 hours 04/13/19 04/12/19 06:10 13:50 Hgb 9.7 L Hct 29.2 L Cord ABG pH 7.34 L Preliminary micro results at discharge 04/11/19 15:47 Urine Culture - Preliminary Urine,Clean Catch NO GROWTH AFTER 24 HOURS DS: Diagnosis - Discharge Diagnosis (1) Normal delivery Status: Acute (2) Forceps delivery Status: Acute Discharge Plan - Patient Discharge Instructions ACTIVITY: Continue current activity, No heavy lifting DIET: continue same diet Additional Instructions: NOTHING IN VAGINA FOR [address] UP WITH DR. BROWN SCHEDULED Patient Instructions: Depression, Hemorrhage, DI for Labor and Delivery, Vaginal , DI for Healthy [place] - Follow up Plan Disposition: Home, Self-[facility] Medications: Home Medications Medication Instructions Recorded Confirmed Type RX: Vit Calc,Iron,Folic 1 tab PO DAILY 10/19/18 04/11/19 History [Kpn] Prescriptions/Medication Reconciliation: Continued RX: Vit Calc,Iron,Folic [Kpn] 1 tab PO DAILY - Problem Reconciliation Problems Reviewed?: Yes
[2019-04-14 05:33] VITALS: BP 109/70
--- NOTE | 2019-04-14 09:09 | Progress Note ---
Internal Medicine - PN: Subj *Date: 04/14/19 *Time: 09:07 Interval history: PPD #2, plan for discharge today no new complaints Exam Vital signs and Labs for Last 24 Hours: Temp Pulse Resp BP Pulse Ox 97.7 F 62 18 109/70 L 100 04/14/19 04:00 04/14/19 04:00 04/14/19 04:00 04/14/19 04:00 04/14/19 04:00 I & O for Last 24 hours: Intake & Output 04/11/19 04/12/19 04/13/19 04/14/19 11:59 11:59 11:59 11:59 Output Total 700 / 700 Balance -700 / -700 Weight 195 lb 15.996 oz Microbiology Reports for the Last 24 Hours: Microbiology 04/11/19 15:47 Urine,Clean Catch Urine Culture - Final NO GROWTH AFTER 48 HOURS Narrative: CONSTITUTIONAL: no acute distress HEENT: mucous membranes moist PULMONARY: breathing unlabored without audible wheezes CV: no tachycardia or visible JVD; normal LE peripheral pulses ABD: soft, NT/ND, no guarding : fundus firm at/below umbilicus SKIN: no visible rash or lesions EXT: 1+ edema LEs NEURO: alert/oriented, no altered mental status PSYCH: appropriate mood and demeanor without visible anxiety/depression Assessment and Plan (1) Normal delivery Current visit: Yes Status: Acute Category: Medical Code(s): O80 - Encounter for full-term uncomplicated delivery (2) Forceps delivery Current visit: Yes Status: Acute Category: Medical Code(s): O75.9 - Complication of labor and delivery, unspecified - Assessment and plan all Dx Assessment and Plan for all problems:: discharge home per dr pantoja's orders see discharge summary
== END 2019-04-14 11:45 | disposition home or self-care (01) | DRG 807 ==
LOC: OBOUT 15:29 → OB 15:35
PROVIDERS: ADMIT Nurse Practitioner Obstetrics & Gynecology; ATTEND Nurse Practitioner Obstetrics & Gynecology
CPT/HCPCS: C1758

== ENCOUNTER 2023-05-11 17:25 | Emergency (ER) | payer OTHER, SELFPAY ==
[2023-05-11 17:27] VITALS: BMI 40.3
--- NOTE | 2023-05-11 17:58 | EXP.UTC ---
Discharge Plan Disposition Patient Disposition: Home, Self-Care Condition: Good Prescriptions Prescriptions: New ondansetron 4 mg Tablet,Disintegrating 4 mg PO Q8H PRN (Reason: Nausea) Qty: 12 0RF No Action norgestimate-ethinyl estradiol [Sprintec (28)] 0.25-35 mg-mcg tablet 1 tab PO DAILY Qty: 84 3RF etonogestrel-ethinyl estradiol [NuvaRing] 0.12-0.015 mg/24 hr ring 1 vag ring VAGINAL Q4W Qty: 3 2RF Rx Instructions: leave in place for 3 weeks of a 4-week cycle Referrals Follow up/Referrals: Provider,MD Roshan [Primary Care Provider] - See instructions Dhruv Varghese MD [Staff Physician] - See instructions Activity Restrictions/Add. Instructions Additional Instructions/Restrictions: Try to avoid very fatty foods. Take the zofran (ondesetron) as directed if you begin to have nausea. Follow up with your regular doctor. Follow up with Dr. Varghese (general surgeon). He will further assess you abdominal pain and treat it accordingly. GO TO THE ER FOR ANY WORSENING SYMPTOMS Clinical Impressions Clinical Impression: Right upper quadrant abdominal pain Instructions Patient Instructions: DI for Acute Abdominal Pain, Ondansetron Discharge ED Provider: Lamont Maynard [facility] General Stated complaint: pain in her right rib area , acid reflux Time Seen by Provider: 05/11/23 17:58 History of Present Illness Provider Complaint: She states that she has been having episodes or right upper quadrant abdominal pain for the past 3 months. She denies that she can identify any factors that trigger the pain or help to relieve it. She has been taking otc antacids with no noticed affect. Related Data Previous Rx's Medication Instructions Recorded norgestimate 0.25 mg-ethinyl 1 tab PO DAILY #84 tabs 10/31/19 estradiol 35 mcg tablet (Sprintec (28)) etonogestrel 0.12 mg-ethinyl 1 vag ring vaginal Q4W #3 ea 10/16/20 estradiol 0.015 mg/24 hr vaginal ring (NuvaRing) ondansetron 4 mg disintegrating 4 mg PO Q8H PRN Nausea #12 tabs 05/11/23 tablet Allergies Allergy/AdvReac Type Severity Reaction Status Date / Time Penicillins [PENICILLINS] Allergy Mild Verified 10/16/20 16:11 Sulfa (Sulfonamide Allergy Mild Verified 10/16/20 16:11 Antibiotics) [SULFA (SULFONAMIDE ANTIBIOTICS)] [facility] Disclaimer: The information contained in this section may have been updated after the patient was seen, as this information can be updated by other users. Social History Smoking Status: Never smoker alcohol intake: never substance use type: denies use current occupational status: unemployed Travel in the last 8 weeks: Inside the [place] ROS Obtained: Yes All systems reviewed & no additional complaints except as documented Constitutional Constitutional: Denies chills, Denies fever(s) and Reports poor appetite ENT Ears, Nose, Mouth, and Throat: Denies dizziness and Denies sore throat Cardiovascular Cardiovascular: Denies dyspnea Respiratory Respiratory: Denies chest congestion, Denies cough and Denies dyspnea Gastrointestinal Gastrointestingal: Reports as per HPI, constipation, diarrhea and nausea; Denies vomiting Genitourinary Female Genitourinary: Denies difficulty voiding, Denies dysuria, Denies hematuria, Denies urinary frequency, Denies urinary incontinence, Denies urinary hesitancy and Denies urinary urgency Musculoskeletal Musculoskeletal: Denies arthralgias Integumentary/Breasts Skin/Breast: Denies rash Neurologic Neurologic: Denies dizziness Physical Exam General General appearance: alert and in no apparent distress Head Head exam: atraumatic and normocephalic Eye Eye exam: Present normal appearance, PERRL and EOMI ENT ENT exam: Present normal exam, normal oropharynx, mucous membranes moist, TM's normal bilaterally and normal external ear exam Neck Neck exam: Present normal inspection, full ROM and trachea midline; Absent tenderness, meni
[2023-05-11 18:00] VITALS: BP 150/99; PULSE 98; RESP 18; TEMP 37.1; O2SAT 96; BMI 40.3
[2023-05-11 18:13] LABS: Apearance,Urine Clear (Clear); Blood, Urine Negative (Negative); Color,Urine Dark Yellow (Yellow); Glucose,Urine (UA) Negative (Negative); Ketones,Urine TRACE (Negative); PH,Urine 6.5 (5.0-8.5); Protein,Urine Negative (Negative)
[2023-05-11 18:14] LABS: Bilirubin,Urine 3+ (Negative); UTC Leukocyte Esterase,Urine Trace (Negative); UTC Nitrate,Urine Negative (Negative); Urobilinogen,Urine 2 EU/dl (0.2)
[2023-05-11 18:41] VITALS: BP 150/99; PULSE 98; RESP 18; TEMP 37.1; O2SAT 96
[2023-05-11 19:02] LABS: Urine Pregnancy, HCG Qual. Negative (Negative)
== END 2023-05-11 18:41 | disposition home or self-care (01) ==
PROVIDERS: Emergency Provider Nurse Practitioner Family
DX: R10.11 Right upper quadrant pain (principal)
CPT/HCPCS: 81003; 81025; 87086; 99204; 99212; G0463

== ENCOUNTER 2023-06-02 08:23 | Outpatient (CLI) | payer OTHER, SELFPAY ==
--- NOTE | 2023-06-02 08:24 | US_ITS ---
FINAL REPORT CLINICAL HISTORY: right upper quad pain COMPARISON: None FINDINGS: Sonographic images of the right upper quadrant were obtained. The pancreas is partially obscured. There is increased echogenicity in the liver diffusely consistent with fatty infiltration of the liver. There are multiple gallstones within the gallbladder. The common duct measures 7.3 mm, larger than normal. Limited images of the right kidney are unremarkable. IMPRESSION: Fatty infiltration of the liver. Multiple gallstones within the gallbladder, with a common bile duct that measures 7.3 mm. Would recommend MRCP or ERCP for evaluation of the common bile duct. Reviewed, Interpreted and Dictated by Dhruv Mcdaniel III, MD Transcribed by Minerva Camarillo Authenticated and [facility]
== END 2023-06-02 23:59 ==
LOC: RAD 08:23
PROVIDERS: PCP Surgery; Visit Provider Surgery
DX: R10.11 Right upper quadrant pain (principal)
CPT/HCPCS: 76705

== ENCOUNTER 2023-06-03 09:53 | Outpatient (CLI) | payer OTHER, SELFPAY ==
[2023-06-03 10:13] LABS: Basophils % 0.5 % (0.1-2.0); Eosinophils # 0.3 K/mm3 (0.0-0.4); Eosinophils % 3.2 % (0.1-12.0); Hematocrit 43.1 % (37.0-47.0); Hemoglobin 14.4 g/dL (12.2-16.2); Lymphocytes % 22.9 % (10-50); Mean Corpuscular HGB Conc 33.4 g/dL (31.8-35.4); Mean Corpuscular Hemoglobin 29.2 pg (27.0-31.2); Mean Corpuscular Volume 87.5 fl (81-99); Mean Platelet Volume 8.3 fl (7.4-10.4); Monocytes # 0.5 K/mm3 (0.1-1.0); Monocytes % 5.8 % (1.7-9.3); Neutrophils # 5.9 K/mm3 (1.8-7.8); Neutrophils % 67.7 % (37.0-80.0); Platelet Count 314 K/mm3 (142-424); Red Blood Count 4.92 M/mm3 (4.20-5.40); Red Cell Distribution Width 14.2 % (11.5-17.5); White Blood Count 8.7 K/mm3 (4.8-10.8)
[2023-06-03 10:36] LABS: Chloride 108 mmol/L (98-107); Potassium 3.9 mmoL/L (3.5-5.1); Sodium 140 mmol/L (136-145)
[2023-06-03 10:39] LABS: Alanine Aminotransferase 26 U/L (12-78); Albumin/Globulin Ratio 1.3 (1.1-1.8); Alkaline Phosphatase 71 U/L (38-126); Anion Gap 11.9 mEq/L (5-15); Aspartate Amino Transferase 26 U/L (14-36); Bilirubin,Total 0.4 mg/dl (0.2-1.3); Blood Urea Nitrogen 8 mg/dl (7-17); Calcium 8.5 mg/dl (8.4-10.2); Carbon Dioxide 24 mmol/L (22.0-30.0); Estimated Glomerular Filt Rate 77 ml/min (>60); GFR (African American) 93 ML/MIN (>60); Globulin 3.1 g/dL (1.3-3.2); Glucose 105 mg/dl (74-100); Total Protein,Serum 7.1 g/dl (6.3-8.2)
== END 2023-06-03 23:59 ==
PROVIDERS: Visit Provider Surgery
DX: K80.20 Calculus of gallbladder without cholecystitis without obstruction (principal)
CPT/HCPCS: 36415; 80053; 85025

== ENCOUNTER 2023-06-23 07:14 | Outpatient (CLI) | payer OTHER, SELFPAY ==
--- NOTE | 2023-06-23 07:19 | MR_ITS ---
FINAL REPORT CLINICAL HISTORY: gallstones COMPARISON: None FINDINGS: Multiplanar MR imaging of the abdomen was performed without contrast. The liver is homogeneous. There is no intrahepatic ductal dilatation. The gallbladder is present. There is a multitude of low signal foci within the lumen of the gallbladder consistent with multiple gallstones. No evidence of pericholecystic inflammation or fluid. Common duct is normal in caliber. No significant abnormality to suggest choledocholithiasis. The pancreatic duct is unremarkable. The spleen, pancreas, adrenals, and kidneys are unremarkable. IMPRESSION: A multitude of stones throughout the gallbladder. No evidence of choledocholithiasis. Reviewed, Interpreted and Dictated by Babak Swanson MD Transcribed by Brittaney Lake Authenticated and [facility]
== END 2023-06-23 23:59 ==
LOC: RAD 07:14
PROVIDERS: Visit Provider Surgery
DX: K80.20 Calculus of gallbladder without cholecystitis without obstruction (principal)
CPT/HCPCS: 74181; 76376

== ENCOUNTER 2023-06-24 10:47 | Outpatient (CLI) | payer OTHER, SELFPAY ==
[2023-06-24 11:36] LABS: Basophils # 0.1 K/mm3 (0-0.2); Basophils % 0.8 % (0.1-2.0); Eosinophils # 0.2 K/mm3 (0.0-0.4); Eosinophils % 2.1 % (0.1-12.0); Hematocrit 43.1 % (37.0-47.0); Lymphocytes # 2.4 K/mm3 (0.7-4.5); Mean Corpuscular HGB Conc 34.9 g/dL (31.8-35.4); Mean Corpuscular Hemoglobin 29.6 pg (27.0-31.2); Mean Platelet Volume 8.5 fl (7.4-10.4); Monocytes # 0.6 K/mm3 (0.1-1.0); Monocytes % 6.4 % (1.7-9.3); Neutrophils # 6.7 K/mm3 (1.8-7.8); Neutrophils % 66.7 % (37.0-80.0); Platelet Count 312 K/mm3 (142-424); Red Blood Count 5.08 M/mm3 (4.20-5.40); Red Cell Distribution Width 14.1 % (11.5-17.5)
[2023-06-24 11:41] LABS: Urine Pregnancy, HCG Qual. Negative (Negative)
[2023-06-24 11:48] LABS: Chloride 107 mmol/L (98-107)
[2023-06-24 11:49] LABS: Potassium 4.1 mmoL/L (3.5-5.1); Sodium 139 mmol/L (136-145)
[2023-06-24 11:51] LABS: Alanine Aminotransferase 33 U/L (12-78); Alkaline Phosphatase 71 U/L (38-126); Anion Gap 12.1 mEq/L (5-15); Aspartate Amino Transferase 32 U/L (14-36); Bilirubin,Total 0.4 mg/dl (0.2-1.3); Blood Urea Nitrogen 7 mg/dl (7-17); Carbon Dioxide 24 mmol/L (22.0-30.0); Estimated Glomerular Filt Rate 88 ml/min (>60); GFR (African American) 107 ML/MIN (>60)
[2023-06-24 11:52] LABS: Albumin Level 4.2 g/dl (3.5-5.0); Albumin/Globulin Ratio 1.3 (1.1-1.8); Calcium 9.4 mg/dl (8.4-10.2); Globulin 3.3 g/dL (1.3-3.2); Glucose 100 mg/dl (74-100); Total Protein,Serum 7.5 g/dl (6.3-8.2)
== END 2023-06-24 23:59 ==
LOC: LAB 10:47
PROVIDERS: Visit Provider Surgery
DX: K80.20 Calculus of gallbladder without cholecystitis without obstruction (principal)
CPT/HCPCS: 36415; 80053; 81025; 85025

== ENCOUNTER 2023-06-28 07:05 | Day surgery (SDC) | payer OTHER, SELFPAY ==
[2023-06-25 11:24] VITALS: BMI 41.1
--- NOTE | 2023-06-25 15:13 | SUR.PREOP ---
PATIENT STATED SHE DOES WANT TO PARTICIPATE IN MEDS TO BEDS, DAY OF SURGERY
[2023-06-28] VITALS (10 sets, daily range): BP systolic 116–148; BP diastolic 71–89; PULSE 63–88; RESP 12–18; TEMP 36.1–36.7; O2SAT 93–99
[2023-06-28] MEDS: LACTATED RINGERS 1000ML 1,000 ML 25 ML IV (07:37)
--- NOTE | 2023-06-28 08:33 | P.PNANES_ITS ---
[facility] Disclaimer: The information contained in this section may have been updated after the patient was seen, as this information can be updated by other users. Medical History History of gastroesophageal reflux (GERD) Surgical History No significant past surgical history Family History Other Family history of stroke Social History (Updated 06/25/23 @ 11:21 by Dedrick Molina RN) Smoking Status: Current every day smoker tobacco type: cigarettes alcohol intake: never substance use type: denies use current occupational status: unemployed Travel in the last 8 weeks: None [facility] Anesthesia Checklist Patient Identification Patient Identification: Verbal (Name & ) Structural Data Admitted From: Home Planned Operative Procedure/s: lap andrew NPO Status Verified Time NPO: 00:00 Additional verifications Anesthesia Reactions: No Hx Blood Transfusions: No Blood Transfusion Reaction: No Airway Assessment Mallampati Score:: Class II C-Spine Mobility Assessed: Yes TMJ Mobility Assessed: Yes Dentition: Good Dentition Neurological Assessment Level of Consciousness: Awake, Alert and Appropriate Anesthesia Plan Anesthesia Risk discussed: Yes Anesthesia Plan: Verified ASA Class: II Anesthesia Type: General
[2023-06-28] MEDS: CLINDAMYCIN PHOSPHATE 900 MG in 0.9 % SODIUM CHLORIDE 50 ML 100 MG IV (10:15)
[2023-06-28] MEDS: ROPIVACAINE 0.5% 30ML VIAL 150 MG (10:23)
[2023-06-28] MEDS: LIDOCAINE 1% 10ML MDV 10 ML (10:25)
--- NOTE | 2023-06-28 11:27 | P.PCN_ITS ---
Procedure: Date: 06/28/23 Patient Date of :: 2000 Procedure Performed:: Laparoscopic cholecystectomy Indications:: Patient presents for cholecystectomy. She is a pleasant 22-year-old originally seen in the office on 05/20/2023. She was referred by the [facility] for gallbladder. She had been seen in the [facility] on 05/11/2023 with episodes of right upper quadrant pain for 3 months consistent with gallbladder disease. At that time she was referred for surgical evaluation. She had not had any imaging or laboratory studies. She actually had some degree of symptoms for several years with right upper quadrant pain radiating into her back worsening postprandially. Gallbladder ultrasound was performed after my initial evaluation and this revealed fatty infiltration of the liver. Multiple gallstones within the gallbladder, with a common bile duct that measures 7.3 mm. Given the common bile duct prominence radiology recommended MRCP or ERCP. I had her undergo blood work which revealed normal liver function tests. MRCP reveals numerous gallstones but no evidence of any choledocholithiasis. Plan was made to proceed with cholecystectomy Performing Provider:: Dhruv Varghese MD Referring Provider:: None Sedation:: MAC sedation Procedure:: Patient was taken to the operating room. She was given preoperative intravenous antibiotic. In the operating room he was placed in a supine position. General anesthesia was induced via endotracheal tube. Abdomen was prepped and draped in the standard surgical fashion. Subumbilical incision was made. Dissection was carried down to the fascia. Ultimately while performing abdominal wall left Veress needle was inserted. CO2 pneumoperitoneum was achieved to 15 mmHg. 11 mm optical trocar was inserted at the umbilicus. Intraperitoneal contents were visualized. She was positioned in reverse Trendelenburg and left side down. A couple 5 mm trocars were inserted in the right upper abdomen.
--- NOTE | 2023-06-28 11:37 | EXP.OP.NOTE ---
Date of procedure: 06/28/23 Pre-op Diagnosis:: Symptomatic gallstones Post-op Diagnosis:: Same Procedure performed:: Laparoscopic cholecystectomy Surgeon:: Dhruv Varghese MD Anesthesia: AMBAR Estimated blood loss (mL): 15 Clinical Note:: Patient presents for cholecystectomy. She is a pleasant 22-year-old originally seen in the office on 05/20/2023. She was referred by the [facility] for gallbladder. She had been seen in the [facility] on 05/11/2023 with episodes of right upper quadrant pain for 3 months consistent with gallbladder disease. At that time she was referred for surgical evaluation. She had not had any imaging or laboratory studies. She actually had some degree of symptoms for several years with right upper quadrant pain radiating into her back worsening postprandially. Gallbladder ultrasound was performed after my initial evaluation and this revealed fatty infiltration of the liver. Multiple gallstones within the gallbladder, with a common bile duct that measures 7.3 mm. Given the common bile duct radiology recommended MRCP or ERCP. I had her undergo blood work which revealed normal liver function tests. MRCP reveals numerous gallstones but no evidence of any choledocholithiasis. Plan was to proceed with laparoscopic possibly open cholecystectomy. Operative findings:: Somewhat distended thickened gallbladder Fatty infiltration of the liver Prominent cystic duct Operative note:: Patient was taken to the operating room. She was given preoperative intravenous antibiotic. In the operating room he was placed in a supine position. General anesthesia was induced via endotracheal tube. Abdomen was prepped and draped in the standard surgical fashion. Subumbilical incision was made. Dissection was carried down to the fascia. Ultimately while performing abdominal wall left Veress needle was inserted. CO2 pneumoperitoneum was achieved to 15 mmHg. 11 mm optical trocar was inserted at the umbilicus. Intraperitoneal contents were visualized. She was positioned in reverse Trendelenburg and left side down. A couple 5 mm trocars were inserted in the right upper abdomen. She was found to have some appreciable fatty infiltration of the liver. Gallbladder was grasped retracted anteriorly and superiorly over the dome of the liver. It was somewhat distended and thickened. Infundibulum of the gallbladder was retracted anterior laterally. Visceral peritoneum over the neck of the gallbladder was thickened. It was ultimately bluntly incised. Very prolonged dissection was carried out at the neck of the gallbladder as she had a rather prominent cystic duct. There was concerns for possible stones within the cystic duct. The cystic duct was carefully milked to potentially manipulate any potential stone into the lumen of the gallbladder. Cystic duct and cystic artery were identified in the critical view of safety. Cystic duct was multiply clipped and sharply divided. Cystic artery was carefully coagulated with RITA ultrasonic harmonic greg. Gallbladder was dissected free from the liver in a retrograde fashion using RITA ultrasonic harmonic greg. Gallbladder was placed within an Endo Catch retrieval device and removed from the peritoneal cavity via the umbilical trocar site. Limited irrigation of the gallbladder fossa and perihepatic space was performed. Limited use of electrocautery was used on the gallbladder fossa for hemostasis. Trocars were then removed as CO2 pneumoperitoneum was evacuated. Fascia at the umbilicus was closed with a couple of interrupted 0 Vicryl sutures. Local anesthetic was infiltrated. Skin incision were closed with 4-0 Monocryl in a subcuticular fashion. Dermabond and dressings were applied. Condition: stable Disposition: PACU Complications:: None immediately apparent
--- NOTE | 2023-06-28 11:41 | EXP.ANES.I ---
[facility] Anesthesia Record Part I Anesthesia Record I Intake, IV Amount: 400 Hydration: Adequate Estimated blood loss (mL): 0 Urine output (mL): 0 Blood Pressure: 123/89 SaO2: 93 Pulse Rate: 80 Airway Patency: Patent Respiratory Rate: 12 Temperature: 97 F Patient is:: Awake and Stable Stable to PACU at:: 11:30
[2023-06-28] MEDS: MORPHINE 2MG/ML SYRINGE 2 MG IV (12:11)
--- NOTE | 2023-06-29 07:24 | EXP.ANES.II ---
[facility] Anesthesia Record Part II Anesthesia Record Part II Discharge Time: 12:00 Destination: Surgical Day Care (OP Surgery) PACU nurse assessment reviewed?: Yes Patient Condition:: Good Anesthesia Complications:: None Swallowing reflex intact?: Yes Airway Patency: Patent Cyanosis?: No Blood Pressure: 120/77 SaO2: 99 Respiratory Rate: 18 Pulse Rate: 79 Temperature: 97.5 F Mental Status: Alert & Oriented Pain level:: 0 Nausea and/or vomitting:: None Intake, IV Amount: 0 Hydration: Adequate
[2023-06-29 07:25] VITALS: BP 120/77; PULSE 79; RESP 18; TEMP 36.4; O2SAT 99
== END 2023-06-28 12:53 | disposition home or self-care (01) ==
PROVIDERS: Visit Provider Surgery
PROC: 0FT44ZZ Resection of Gallbladder, Percutaneous Endoscopic Approach (ICD-10-PCS; CPT 47562; principal; 2023-06-28 08:45)
DX: K80.10 Calculus of gallbladder with chronic cholecystitis without obstruction (principal)
CPT/HCPCS: 47562; 96374; J0736; J2405; J2710